=== PATIENT | female | born 1970 | race Caucasian/White ===

== ENCOUNTER 2020-08-04 07:55 | Outpatient (CLI) | payer OTHER, SELFPAY ==
--- NOTE | 2020-08-04 08:17 | MR_ITS ---
WS: [id number] MRI LUMBAR SPINE NONCONTRAST HISTORY: LOW BACK PAIN COMPARISON: CT lumbar spine 05/03/2019 TECHNIQUE: Sagittal and axial multisequence imaging is submitted. Mild increase in the thoracic kyphosis on the upper shaper survey. Slight increase in the normal lumbar lordosis. No fractures or marrow edema. Disc spaces and vertebral body heights are well-preserved. Conus terminates normally at L1. L1-L2: Normal. L2-L3: Mild ligamentum flavum hypertrophy. L3-L4: Mild osteophytic ridging with mild ligamentum flavum hypertrophy and facet arthritis. No steno sis. L4-L5: Very mild narrowing of the central canal. No focal disc protrusions very slight broad-based he rniation LEFT paracentral and proximal foramen without nerve root encroachment. L5-S1: Mild annular disc bulging and osteophytic ridging. No significant disc protrusion. 10 mm RIGHT renal cyst. MR/MR lumbar spine wo con* [id number] IMPRESSION: 1. Mild degenerative facet joint arthritis and disc disease throughout the lum bar spine. No significant stenosis or disc protrusion. 2. Mild broad-based LEFT paracentral and proximal foraminal herniation at L4-5 without nerve root encroachment.
== END 2020-08-04 07:56 | disposition home or self-care (01) ==
LOC: RADWPI 07:57
PROVIDERS: PCP Family Medicine; Visit Provider Nurse Practitioner
DX: M47.816 Spondylosis without myelopathy or radiculopathy, lumbar region (principal); M51.26 Other intervertebral disc displacement, lumbar region
CPT/HCPCS: 72148

== ENCOUNTER → 2023-04-12 14:53 | Outpatient (BNVA) | payer OTHER, SELFPAY | PROVIDERS: PCP Family Medicine; Visit Provider Internal Medicine | DX: R76.8 Other specified abnormal immunological findings in serum (principal); R79.82 Elevated C-reactive protein (CRP); M25.50 Pain in unspecified joint | CPT/HCPCS: 36415; 73120; 80053; 85025; 85651; 86160; 86162; 86200; 86235; 86255; 86376; 86431; 86480; 86704; 86803; 87340 ==

== ENCOUNTER → 2023-06-09 11:35 | Outpatient (BNVA) | payer OTHER, SELFPAY | PROVIDERS: PCP Family Medicine; Visit Provider Internal Medicine | DX: R76.8 Other specified abnormal immunological findings in serum; R79.82 Elevated C-reactive protein (CRP); H44.009 Unspecified purulent endophthalmitis, unspecified eye; M25.511 Pain in right shoulder | CPT/HCPCS: 73030 ==

== ENCOUNTER 2024-04-16 14:22 | Outpatient (CLI) | payer OTHER, SELFPAY ==
--- NOTE | 2024-04-16 14:26 | CT_ITS ---
WS: [id number] LDCT LUNG CANCER SCREENING HISTORY: NICOTINE DEPENDENCE TECHNIQUE: Axial imaging performed from the apices to 1 cm below the costophrenic angles. Coronal and sagittal reformats are submitted with axial MIP series. All CT scans at [facility] use at least one of these dose optimization techniques: automated exposure control; mA and/or kV adjustment per patient size (includes targeted exams where dose is matched to clinical indication); or iterativ e reconstruction. DLP: 138.62 mGy.cm DIvol: Mean CTDIvol: 3.50 (mGy) COMPARISON: None available. Diagnostic quality: Limited. Breathing motion artifact and body habitus. Lungs: Hazy attenuation throughout both lungs due to breathing and body habitus. Small nodules would easily be obscured. There are no large nodule or mass. No endobronchial lesions. Heart: Normal size heart with no pericardial effusion.. Other findings: No mediastinal or hilar adenopathy. Normal size aorta. Mild atherosclerosis. Surgical clips in the thyroid bed. Bilateral adrenal low-attenuation nodules. RIGHT adrenal thickening and ad enoma LEFT adrenal gland. CT/CT lung screening [id number] IMPRESSION: LUNG-RADS: 2-Benign Appearance or Behavior FOLLOW UP: 12 Month: Continue annual screening with LDCT OTHER FINDINGS (S MODIFIER): None.
== END 2024-04-16 14:23 | disposition home or self-care (01) ==
LOC: RAD 14:24
PROVIDERS: PCP Family Medicine; Visit Provider Family Medicine
DX: Z12.2 Encounter for screening for malignant neoplasm of respiratory organs (principal); F17.210 Nicotine dependence, cigarettes, uncomplicated; D35.01 Benign neoplasm of right adrenal gland; D35.02 Benign neoplasm of left adrenal gland
CPT/HCPCS: 71271

== ENCOUNTER 2024-12-13 12:32 | Outpatient (CLI) | payer OTHER, SELFPAY ==
--- NOTE | 2024-12-13 12:35 | MM_ITS ---
WS: [id number] BILATERAL 3D TOMOSYNTHESIS DIGITAL SCREENING MAMMOGRAPHY WITH CAD CLINICAL INFORMATION: SCREENING HISTORY: Screening mammogram. No current complaints. COMPARISON: 2017 TECHNIQUE: Bilateral CC and MLO views. FINDINGS: Scattered fibroglandular densities bilaterally. No suspicious focal mass, asymmetry, calcifications, or architectural distortion. No evidence of malignancy. MM/MM scr BI tomosynthesis [id number] IMPRESSION: DENSITY: There are scattered areas of fibroglandular density. BI-RADS: 1 - Negative. FOLLOW UP: 1 Year Follow-up Recommend return to annual screening mammography.
== END 2024-12-13 12:33 | disposition home or self-care (01) ==
LOC: RAD 12:34
PROVIDERS: PCP Family Medicine; Visit Provider Family Medicine
DX: Z12.31 Encounter for screening mammogram for malignant neoplasm of breast (principal); R92.323 Mammographic fibroglandular density, bilateral breasts
CPT/HCPCS: 77063; 77067